=== PATIENT | male | born 1955 | race Caucasian/White ===

== ENCOUNTER 2017-08-10 20:51 | Observation (INO) | payer BC ==
[2017-08-10 21:16] LABS: #Eosinphils 0.1 thou/uL (0.0-0.7); #Lymphocytes 1.8 thou/uL (1.20-3.40); #Monocytes 0.4 thou/uL (0.11-0.59); #Neutrophils 4.6 thou/uL (1.40-6.50); %Basophils 0.3 % (0.0-1.0); %Lymphocytes 25.5 % (21.0-51.0); %Neutrophils 67.1 % (42.0-75.0); Hemoglobin 13.8 g/dL (14.0-18.0); Mean Corpuscular HGB CONC 34.2 g/dL (32.0-36.0); Mean Corpuscular Hemoglobin 30.9 pg (27.0-31.0); Mean Corpuscular Volume 90.4 fl (80.0-94.0); Mean Platelet Volume 6.8 fL (7.4-10.4); Platelet Count 258 thou/uL (130-400); RBC Distribution Width 12.4 % (11.5-14.5); Red Blood Cell (RBC) Count 4.45 mill/uL (4.70-6.10); White Blood Cell (WBC) Count 6.8 thou/uL (4.8-10.8)
--- NOTE | 2017-08-10 21:30 | RAD ---
CHEST ONE VIEW: 08/10/17 HISTORY: Chest pain. COMPARISON: None. FINDINGS: The lungs are clear. No pneumothorax or effusion. The cardiac silhouette and mediastinal contours are within normal limits. Right shoulder arthroplasty is in place. ACDF hardware. IMPRESSION: No acute intrathoracic abnormality. POS: KIMBERLYH
[2017-08-10 21:36] LABS: ALT (SGPT) 23 U/L (8-55); AST (SGOT) 18 U/L (5-34); Albumin 4.2 g/dL (3.4-4.8); Alkaline Phosphatase 58 U/L (40-150); Anion Gap 13 mmol/L (10-20); BUN (Urea Nitrogen) 14 mg/dL (8.4-25.7); Bilirubin, Total 0.6 mg/dL (0.2-1.2); CK (CPK) 245 U/L (30-200); Calc. Creatinine Clearance 0 mL/min (70-130); Calcium 9.7 mg/dL (7.8-10.44); Carbon Dioxide 29 mmol/L (23-31); Chloride 103 mmol/L (98-107); Estimated GFR-MDRD 82; Globulin 2.8 g/dL (2.4-3.5); Glucose 103 mg/dL (80-115); Potassium 3.8 mmol/L (3.5-5.1); Sodium 141 mmol/L (136-145)
[2017-08-10 21:40] LABS: CKMB 3.1 ng/mL (0-6.6); Troponin I Less than 0.010 ng/mL (< 0.028)
[2017-08-11 00:54] LABS: Troponin I Less than 0.010 ng/mL (< 0.028)
[2017-08-11] MEDS ORDERED: Acetaminophen 325 MG TAB PO PRN ×2 (01:07→06:56)
[2017-08-11 02:00] VITALS: BMI 29.2
[2017-08-11 04:09] LABS: Cardiac Risk 3.7 (Less than 4.5)
[2017-08-11 04:13] LABS: Troponin I Less than 0.010 ng/mL (< 0.028)
[2017-08-11] MEDS ORDERED: Nitroglycerin 2% Ointment 1 INCH/1 GM Packet TOP SCH ×2 (06:00→14:00)
[2017-08-11] MEDS ORDERED: HYDROcodone/Acetaminophen 5/325 mg Tablet PO PRN (06:56)
[2017-08-11] MEDS ORDERED: Ondansetron ODT 4 MG TAB PO PRN (06:56)
[2017-08-11] MEDS ORDERED: Zolpidem Tartrate 5 MG TAB PO PRN (06:56)
[2017-08-11] MEDS ORDERED: Ondansetron HCl/PF 4 MG/2 ML Vial IVP PRN (06:56)
[2017-08-11] MEDS ORDERED: Senokot 8.6 MG TAB PO PRN (06:56)
[2017-08-11] MEDS ORDERED: Loperamide HCl 2 MG CAP PO PRN (06:56)
[2017-08-11] MEDS ORDERED: Mag-Al 1200 mg/1200 mg/30 ML UDCUP PO PRN (06:56)
[2017-08-11] MEDS ORDERED: Milk Of Magnesia 30 ML UDCUP PO PRN (06:56)
[2017-08-11] MEDS ORDERED: hydrALAZINE 20 MG/ML VIAL SLOW IVP PRN (06:59)
[2017-08-11] MEDS ORDERED: Eucerin (Mineral Oil/Petrolatum,White) 30 gm Jar TOP PRN (06:59)
[2017-08-11] MEDS ORDERED: Sodium Chloride 0.65% Nasal 44 ML BOT EA NARE PRN (06:59)
[2017-08-11] MEDS ORDERED: Loratadine 10 MG TAB PO PRN (06:59)
[2017-08-11] MEDS ORDERED: Chloraseptic Spray 180 ml Bottle PO PRN (06:59)
[2017-08-11] MEDS ORDERED: Artificial Tears 18 DROP/0.9 ML EA EYE PRN (06:59)
[2017-08-11] MEDS ORDERED: Diabetic Tussin 200 MG/10 ML UDCUP PO PRN (06:59)
[2017-08-11] MEDS ORDERED: Aspirin 325 MG TAB PO SCH ×2 (09:00)
[2017-08-11] MEDS ORDERED: Non-Formulary Item 1 EACH (Multivitamin [Multivitamins] 1 CAP) PO SCH (09:00)
[2017-08-11] MEDS ORDERED: Multivit, Therapeutic 1 TAB PO SCH (09:00)
[2017-08-11] MEDS ORDERED: Lisinopril 20 MG TAB PO SCH ×2 (09:00)
[2017-08-11] MEDS ORDERED: Hydrochlorothiazide 25 MG TAB PO SCH (09:00)
--- NOTE | 2017-08-11 10:42 | SS ---
DATE OF ADMISSION: 08/11/2017 at midnight. PRIMARY CARE PHYSICIAN: The patient's primary care physician previously is Dr. Lisandra Hoang at [facility], but she is retired and now patient does not have any PCP. REASON FOR ADMISSION: Chest pain. HISTORY OF PRESENT ILLNESS: The patient is a 61-year-old male who has underlying history of hypertension and dyslipidemia who presented to emergency room with complaint of chest pain. He describes that he was experiencing tightness across the chest along with radiation to back discomfort. He denies any associated dizziness, nausea or vomiting, but he was feeling belching that was not helping his symptoms. He denies any radiation to any upper extremity. He denies any vomiting. He denies any diaphoresis. These symptoms started yesterday around 3:00 p.m., but symptoms was keep getting worse and patient had persistent symptoms up until 9 p.m. when he decided to come to the emergency room for evaluation. When he came to emergency room, his discomfort automatically subsided. When it started, at that time his discomfort was about 6/10 and when he arrived to emergency room, his discomfort was about 1/10 and subsequently reduced. There was no specific relieving factor and there was no specific aggravating factor, but he noticed that these symptoms started when he was exerting himself on tractor at home. He denies any palpitation, dizziness or syncope. He denies any orthopnea, PND or leg swelling. He had several years ago stress test done, but after that he never had any testing done. He has strong family history of coronary artery disease. The patient took aspirin before coming to emergency room. In the emergency room, this patient had routine blood test, which was completely normal including CBC, BMP, cardiac enzyme and lipid profile was checked, which was also normal. Today, we are planning to do stress test and if stress test is negative, then we will consider discharging him home later on today. Currently, patient is chest pain free. REVIEW OF SYSTEMS: The following complete review of systems was negative, unless otherwise mentioned in the HPI or below: Constitutional: Weight loss or gain, ability to conduct usual activities. Skin: Rash, itching. Eyes: Double vision, pain. ENT/Mouth: Nose bleeding, neck stiffness, pain, tenderness. Cardiovascular: Palpitations, dyspnea on exertion, orthopnea. Respiratory: Shortness of breath, wheezing, cough, hemoptysis, fever or night sweats. Gastrointestinal: Poor appetite, abdominal pain, heartburn, nausea, vomiting, constipation, or diarrhea. Genitourinary: Urgency, frequency, dysuria, nocturia. Musculoskeletal: Pain, swelling. Neurologic/Psychiatric: Anxiety, depression. Allergy/Immunologic: Skin rash, bleeding tendency. Please see my HPI for pertinent positive and negative. All other review of systems reviewed and negative except as mentioned in the HPI. PAST MEDICAL HISTORY: Hypertension, dyslipidemia, and gastroesophageal reflux disease. PAST SURGICAL HISTORY: Hernia repair, right rotator cuff repair, neck surgery. PAST PSYCHIATRIC HISTORY: Reviewed and negative. SOCIAL HISTORY: The patient drinks alcohol on weekends. He denies any smoking. He denies any other illicit drug abuse. 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 He lives at home with family. FAMILY HISTORY: Strongly positive for coronary artery disease. His father from heart attack by age of 72. His brother, sister, mother, all had coronary artery disease and bypass. EMERGENCY ROOM COURSE: Patient was given aspirin 324 mg. ALLERGIES: PENICILLIN, IODINATED CONTRAST, MUSHROOM. CURRENT HOME MEDICATIONS: Lisinopril 20 mg daily, hydrochlorothiazide 25 mg daily, Crestor 20 mg p.o. daily, aspirin 81 mg p.o. at bedtime. PHYSICAL EXAMINATION: VITAL SIGNS: On arrival, blood pressure 150/84, pulse 69, respiratory rate 16, temperature 97.7, saturation 95% on room air, weight 104.3 kilograms. GENERAL: The patient is currently alert, awake, no acute distress. HEAD: Normocephalic, atraumatic. EYES: Pupils round, reactive to light. Extraocular muscle intact. ENT: Oropharynx within normal limits. Moist mucous membranes. No oral lesion , no pharyngeal erythema, no exudate. NECK: Supple, no JVD, no thyromegaly, no carotid bruit. No jugular venous distention. LUNGS: Clear to auscultation without any rhonchi or rales. Chest wall, no point tenderness, no reproducibility of chest pain. CARDIAC: S1, S2 regular without any murmur, no gallop, no rub. ABDOMEN: Obesity present. Bowel sounds present, nontender, nondistended. No organomegaly, no mass, no suprapubic tenderness, no Fields sign, no epigastric discomfort. BACK: Unremarkable. No CVA tenderness. EXTREMITIES: Upper extremity, passive movement of all joints are normal. Lower extremity, no edema. Good peripheral pulsation. SKIN: No skin rash. HEMATOLOGIC: No lymphadenopathy. PSYCHIATRIC: Normal affect. NEUROLOGIC: Nonfocal examination. SIGNIFICANT LABORATORY DATA AND IMAGING: EKG showing normal sinus rhythm without any acute ischemic changes. Chest x-ray based on my review, no acute cardiopulmonary process. Right shoulder arthroplasty in place. ACDF hardware noted. CBC: WBC 6.8, hemoglobin 13.8, platelet 258. BMP shows sodium 141, potassium 3.8, chloride 103, carbon dioxide 29, BUN 14, creatinine 0.93, glucose 103, calcium 9.7. LFT: AST 18, ALT 23, alkaline phosphatase 58, albumin 4.2. Cardiac enzymes negative x3. CK 245, triglycerides 130, cholesterol 117, LDL 59, HDL 32. ASSESSMENT AND PLAN: 1. Acute chest pain. Patient's chest pain description is atypical. He has several risk factors for coronary artery disease including his hypertension, dyslipidemia, age and family history. Probability of coronary artery disease in this patient is low, but needs to be excluded. We will try to do exercise Cardiolite stress test today and if stress test is negative, then we will consider discharging him home. His lipid profile is our target. We will try to control his risk factor. The patient may have underlying acid reflux symptoms and that is why patient is advised to take after discharge Prilosec or Pepcid [id number] medications. While in hospital, we will give him Protonix. 2. Hypertension. We will continue lisinopril 20 mg p.o. daily, hydrochlorothiazide 25 mg p.o. daily. 3. Gastroesophageal reflux disease. Continue Protonix 40 mg p.o. daily. Upon discharge, we will continue his omeprazole 20 mg p.o. daily. 4. Dyslipidemia. Lipid profile checked and within normal limit. Continue Crestor 20 mg p.o. at bedtime. 5. Obesity. Dietary education given. Healthy lifestyle measures discussed with the patient. 6. Deep venous thrombosis prophylaxis not needed, because we are expecting discharge later on today. 7. Gastrointestinal prophylaxis. The patient will continue Protonix while in hospital. CODE STATUS: Patient is FULL CODE. Patient does not have any surrogate decision maker. He is making decision by himself. Disposition and plan based on stress test result. DATE OF ADMISSION: 08/11/2017 DATE OF DISCHARGE: 08/11/2017 DISCHARGE DISPOSITION: Home. PRIMARY DISCHARGE DIAGNOSIS: Chest pain, ruled out acute coronary syndrome. SECONDARY DISCHARGE DIAGNOSES: Hypertension, dyslipidemia, gastroesophageal reflux disease. PRIMARY PROCEDURE AND OPERATION: None. RADIOLOGICAL INVESTIGATIONS: Chest x-ray normal. SIGNIFICANT LABORATORY DATA: Please see above. DISCHARGE PLAN: Post-hospital, patient will follow up with primary care physician in 1 week. HOSPITAL COURSE: Please see my HPI for further detail. The patient is admitted for chest pain. We did stress test and stress test result is pending by the time of dictation. If stress test is negative, then we will consider discharging him home later on today. The patient most likely admitted and discharged on the same day. stress test is negative MTDD
[2017-08-11 13:55] VITALS: BP 122/76; TEMP 97.5
--- NOTE | 2017-08-11 13:59 | NM ---
RADIONUCLIDE STRESS REST MYOCARDIAL PERFUSION SCAN WITH CT ATTENUATION CORRECTION AND SPECT IMAGING LEFT VENTRICULAR WALL MOTION EVALUATION AND EJECTION FRACTION: HISTORY: Dyslipidemia. Chest pain. FINDINGS: A Delvin protocol was used for a total test time of 8 minutes 0 seconds. There is homogeneous uptake of radiotracer throughout the left ventricular myocardium without focal perfusion defect or reversibi lity. QGS analysis of gated SPECT images shows no focal wall motion abnormalities. TID=1.2. LHR=45 %. Left ventricular ejection fraction calculated at 62%. IMPRESSION: Normal myocardial perfusion scan. Normal left ventricular ejection fraction. POS: KIMBERLY
[2017-08-11] MEDS ORDERED: Rosuvastatin 20 MG TAB PO SCH (21:00)
== END 2017-08-11 14:33 | disposition home or self-care (01) ==
LOC: ERS 20:51 → ERHOLD 08-11 00:04 → 2SW 08-11 01:16
PROVIDERS: ADMIT Internal Medicine; ATTEND Internal Medicine
DX: R07.89 Other chest pain (principal); I10 Essential (primary) hypertension; E78.5 Hyperlipidemia, unspecified; K21.9 Gastro-esophageal reflux disease without esophagitis; E66.9 Obesity, unspecified; Z68.29 Body mass index [BMI] 29.0-29.9, adult; Z91.041 Radiographic dye allergy status; Z91.018 Allergy to other foods; Z88.0 Allergy status to penicillin; Z79.82 Long term (current) use of aspirin; Z79.899 Other long term (current) drug therapy
CPT/HCPCS: 36415; 71045; 78452; 80053; 80061; 82553; 84484; 85025; 93005; 93017; A9500; G0378

== ENCOUNTER 2021-09-07 14:12 | Outpatient (CLI) | payer BC ==
[2021-09-07 15:01] LABS: #Eosinphils 0.1 10x3/uL (0.0-0.5); #Monocytes 0.5 10x3/uL (0.0-1.1); #Neutrophils 3.9 10x3/uL (1.5-8.4); %Basophils 0.6 % (0.0-2.0); %Eosinophils 1.4 % (0.0-6.0); %Lymphocytes 28.8 % (18.0-47.0); %Monocytes 7.3 % (0.0-10.0); %Neutrophils 61.6 % (40.0-75.0); Hemoglobin 14.4 g/dL (13.5-17.5); Mean Corpuscular HGB CONC 34.9 g/dL (32.0-36.0); Mean Corpuscular Hemoglobin 30.9 pg (27.0-33.0); Mean Corpuscular Volume 88.6 fl (81.2-95.1); Platelet Count 256 10x3/uL (150-450); RBC Distribution Width 13.4 % (11.5-14.5); Red Blood Cell (RBC) Count 4.66 10x6/uL (4.32-5.72); White Blood Cell (WBC) Count 6.3 10x3/uL (3.5-10.5)
== END 2021-09-07 14:13 | disposition home or self-care (01) ==
LOC: LABBT 14:12
PROVIDERS: ATTEND Orthopaedic Surgery Hand Surgery
DX: Z01.818 Encounter for other preprocedural examination (principal); G56.01 Carpal tunnel syndrome, right upper limb; G56.21 Lesion of ulnar nerve, right upper limb; Z20.822 Contact with and (suspected) exposure to COVID-19
CPT/HCPCS: 85025; 87811; 93005; 93010

== ENCOUNTER 2021-09-09 05:46 | Day surgery (SDC) | payer BC ==
[2021-09-08 13:01] VITALS: BMI 28.7
[2021-09-09] MEDS ORDERED: fentaNYL Citrate/PF 100 MCG/2 ML SYRINGE ONE ×3 (08:15→10:11)
[2021-09-09] MEDS ORDERED: Betamet Acet/Betamet Na Ph 30 MG/5 ML VIAL ONE (08:23)
[2021-09-09] MEDS ORDERED: Bupivacaine PF 0.5% 30 ML VIAL ONE (08:23)
[2021-09-09] MEDS ORDERED: Bacitracin Zinc Ointment 30 gm TUBE ONE (08:23)
[2021-09-09] MEDS ORDERED: Neomycin-Polymyxin 1 ML AMP ONE (08:23)
[2021-09-09] MEDS ORDERED: Vancomycin 1 GM/200 ML BAG ONE (08:32)
[2021-09-09] MEDS ORDERED: Ondansetron PF 4 MG/2 ML Vial ONE (08:42)
[2021-09-09] MEDS ORDERED: Lidocaine 1% PF 5 ML VIAL ONE (08:42)
[2021-09-09] MEDS ORDERED: Dexamethasone 20 MG/5 ML VIAL ONE (08:42)
[2021-09-09] MEDS ORDERED: PROPOFOL 200 MG/20 ML VIAL ONE (08:42)
[2021-09-09] MEDS ORDERED: ePHEDrine 50 MG/ML VIAL ONE (08:42)
[2021-09-09] MEDS ORDERED: Thrombin 5000 UNITS/5 ML VIAL ONE (11:19)
[2021-09-09] MEDS ORDERED: Ketorolac Tromethamine 30 MG/ML VIAL ONE (12:12)
[2021-09-09] MEDS ORDERED: HYDROcodone/Acetaminophen 5/325 mg Tablet ONE (13:04)
== END 2021-09-09 13:40 | disposition home or self-care (01) ==
LOC: SDC 05:46
PROVIDERS: ATTEND Orthopaedic Surgery Hand Surgery
PROC: 01N50ZZ Release Median Nerve, Open Approach (ICD-10-PCS; principal; 2021-09-09)
DX: G56.21 Lesion of ulnar nerve, right upper limb (principal); G56.01 Carpal tunnel syndrome, right upper limb; I10 Essential (primary) hypertension; E78.5 Hyperlipidemia, unspecified; K21.9 Gastro-esophageal reflux disease without esophagitis; Z79.82 Long term (current) use of aspirin; Z79.899 Other long term (current) drug therapy; Z88.0 Allergy status to penicillin; Z91.018 Allergy to other foods; Z91.041 Radiographic dye allergy status
CPT/HCPCS: C1713; J0702; J1100; J1885; J2405; J2704; J3370; J3490; S0020